=== PATIENT | female | born 1960 | race Caucasian/White ===

== ENCOUNTER → 2018-08-28 | Day surgery (SDC) | payer OTHER ==
[~2018-08-28] MED LIST: Benzocaine 20% Oral Spray 59.2 ML Canister MUCMEM ONE; Lactated Ringers 1,000 ML IV SCH; Meperidine PF 100 MG/ML Syringe IV ONE; Meperidine PF 25 MG/ML Syringe IV ONE; Midazolam 1 MG/ML 2 ML SDV IV ONE
--- NOTE | 2018-08-28 13:46 | OR ---
DATE OF OPERATION: 08/28/2018 PREOPERATIVE DIAGNOSIS: 1. EPIGASTRIC PAIN. 2. ALTERED BOWEL HABITS. POSTOPERATIVE DIAGNOSIS: 1. PEPTIC ULCER DISEASE. 2. NORMAL COLONOSCOPY. SURGEON: Miguel Kumar MD PROCEDURE: 1. EGD WITH BIOPSIES X2, ANA, POLYP REMOVAL VIA FORCEPS. 2. FULL-LENGTH COLONOSCOPY. ANESTHESIA: Conscious sedation with a total of 75 mg Demerol, 6 mg of Versed with continuous O2 sat monitoring and nurse assist. The patient's oxygen saturations remained above 90 for the entire procedure. COMPLICATIONS: None. SPECIMEN: 1. Antral biopsy x2. 2. CLOtest. 3. Forceps biopsy x4. 4. Fundal polyp. FINDINGS: 1. Full-length EGD. 2. Minimal duodenitis, duodenal bulb. 3. Antral peptic ulcer disease with 1 larger ulcer and multiple small erosions. 4. Benign adenomatous polyp, upper fundus. 5. Normal full-length colonoscopy with tortuous colon. RECOMMENDATIONS: The patient has already been placed on appropriate treatment for her ulcer by her primary physician, Dr. Dany Man, recommended routine colonoscopy, followup in the next 10 years. INDICATIONS: Mrs. Goldberg presented to her primary physician with complaints of epigastric pain and altered bowel habits. She ultimately was sent for diagnostic upper and lower endoscopy. DESCRIPTION OF PROCEDURE: The patient was prepped and draped, placed in the left lateral decubitus position. A lubricated Olympus gastroscope was inserted over a bit and advanced to cricopharyngeus area and easily intubated into the esophagus. Esophageal lining was benign in its entire course. The Z-line was crisp and sharp at 39 cm. There was no spontaneous reflux, distal esophagitis, stricturing, ulceration, or Reyna's changes. The scope was advanced into the stomach, through the pylorus, into the second portion of the duodenum. This was unremarkable. Duodenal bulb may have had a mild amount of duodenitis, but very minimal at best. No ulcerations or erosions seen. The scope was brought back into the stomach and retroflexed. The upper fundus and cardia were benign other than adenomatous polyp, a very borderline size as far as getting through the scope, so we elected to remove it with 4 full forceps biopsies in its entirety with small amount of stalk left. Resolution of bleeding there was spontaneous. Upon straightening, the rest of the fundus was unremarkable. In the antrum in the peripyloric area, the patient had evidence of peptic ulcer disease with 1 larger ulcer nonbleeding as well as multiple small erosions around this. Two biopsies were obtained, a CLOtest as well. Air was then suctioned from the stomach and the scope was removed without complication. A lubricated Olympus colonoscope was then inserted and with relative ease advanced to the cecum. Direct visualization of the ileocecal valve and appendiceal orifice was accomplished. The bowel prep was adequate. Upon withdrawal of the scope throughout the entire length of the colon, I could find no signs of any polyps, mass, ulceration, or bleeding sites. No vascular abnormalities or signs of colitis. There were no diverticula. The rectal vault was benign. Retroflexion of the scope in the rectum showed no anal lesions. Air was suctioned. The scope was removed without complication. ESTRELLITA/KRISTA /[id number] cc: Dany Man MD [address], [id number]
== END ==
LOC: CC.SDS 09:12
PROVIDERS: ATTEND Family Medicine
DX: K29.50 Unspecified chronic gastritis without bleeding (principal); K29.80 Duodenitis without bleeding; K25.9 Gastric ulcer, unspecified as acute or chronic, without hemorrhage or perforation; K31.7 Polyp of stomach and duodenum; R19.4 Change in bowel habit; Z79.899 Other long term (current) drug therapy
CPT/HCPCS: 43239; 45378; 87081; J2175; J2250; J7120